=== PATIENT | male | born 1940 | race Caucasian/White ===

== ENCOUNTER → 2019-02-19 09:17 | Outpatient (CLI) | payer MEDICARE, OTHER, SELFPAY ==
--- NOTE | 2019-02-19 | DI.US.S_ITS ---
PROCEDURE: US CAROTID DOPPLER BI INDICATIONS: ATHEROSCLEROTIC HEART DISEASE OF [place] CORONARY TECHNIQUE: Color and pulse Doppler interrogation was performed of both carotid systems, with image documentation and velocity measurements. COMPARISON: None. FINDINGS: Stenosis calculations are based on SRU ([employer] in [employer]) criteria. Right side: Brachial blood pressure: 160/59 mm Hg. Common carotid artery peak systolic velocity: 65 cm/sec. Internal carotid artery peak systolic velocity: 143 cm/sec. Internal carotid artery end diastolic velocity: 35 cm/sec. External carotid artery peak systolic velocity: 134 cm/sec. ICA/CCA peak systolic ratio: 2.19 Thomas scale imaging description: Moderate to prominent atherosclerotic changes are seen. Percent internal carotid artery stenosis: 50-69% by velocity criteria Vertebral artery: Flow direction is antegrade. Left side: Brachial blood pressure: Not obtained. Common carotid artery peak systolic velocity: 68 cm/sec. Internal carotid artery peak systolic velocity: 155 cm/sec. Internal carotid artery end diastolic velocity: 29 cm/sec. External carotid artery peak systolic velocity: 209 cm/sec. ICA/CCA peak systolic ratio: 2.28 Thomas scale imaging description: The moderate to prominent atherosclerotic changes can be seen. Percent internal carotid artery stenosis: 50-69% by velocity criteria. Vertebral artery: Flow direction is antegrade. IMPRESSION: By velocity criteria, there is a moderate stenosis (between 50 and 69% stenosis) within both internal carotid arteries, left more prominent than right. There is also a greater than 50% stenosis seen involving the left external carotid artery. Dictated by: Jose Wilkes M.D. on 02/19/2019 at 12:32 Approved by: Jose Wilkes M.D. on 02/19/2019 at 12:34
== END ==
PROVIDERS: Visit Provider Internal Medicine Cardiovascular Disease
DX: I65.23 Occlusion and stenosis of bilateral carotid arteries (principal); I25.10 Atherosclerotic heart disease of native coronary artery without angina pectoris
CPT/HCPCS: 93880